=== PATIENT | female | born 1940 | race Caucasian/White ===

== ENCOUNTER 2021-10-17 00:06 | Emergency (ER) | payer OTHER, MEDICAID ==
[~2021-10-17] VITALS: Ht 162.6 cm; Wt 80.0 kg
[~2021-10-17 00:06] MED LIST: APIX5TAB PO; CARB-299 PO; CARB1TAB2 PO; DIGO250T4 PO; FURO20TA4 PO; LOSA25TA3 PO; METF-414 PO; POTA10CA42 PO
[2021-10-17 00:22] VITALS: BP 142/96
[2021-10-17] MEDS ORDERED: FUROSEMIDE 100MG/10ML VIAL IVP ONE (00:30)
[2021-10-17] MEDS ORDERED: NITROGLYCERIN 0.4MG TABLET SL SL PRN (00:30)
[2021-10-17] MEDS ORDERED: ASPIRIN 81MG TABLET PO ONE (00:30)
== END 2021-10-17 02:41 | disposition left against medical advice (07) ==
LOC: ER 00:06
DX: R06.02 Shortness of breath (principal); I11.0 Hypertensive heart disease with heart failure; I50.9 Heart failure, unspecified; M19.90 Unspecified osteoarthritis, unspecified site; E11.9 Type 2 diabetes mellitus without complications; Z88.0 Allergy status to penicillin; Z20.822 Contact with and (suspected) exposure to COVID-19
CPT/HCPCS: 87426; 93005; 99284